=== PATIENT | male | born 1965 | race Caucasian/White ===

== ENCOUNTER 2017-03-17 00:56 | Emergency (ER) | payer OTHER ==
[~2017-03-17] VITALS: Ht 188 cm; Wt 89.1 kg
[2017-03-17 00:58] VITALS: TEMP 36.8; Ht 188 cm; Wt 89.1 kg
[2017-03-17] MEDS ORDERED: HYDROCODONE/ACETAMOPHEN 5/325MG TAB PO STA (01:13)
[2017-03-17] MEDS ORDERED: DEXAMETHASONE SOD INJ 10 MG/ML VIAL IM ONE (01:15)
[2017-03-17] MEDS ORDERED: NORCO 5/325MG HOME PACK PO ONE (01:15)
[2017-03-17] MEDS ORDERED: ZOLP10TA PO (01:17)
[2017-03-17] MEDS ORDERED: NAPR1TAB9 PO (01:17)
[2017-03-17] MEDS ORDERED: "\\\"MUSCLE RELAXER\\\"" PO (01:18)
--- NOTE | 2017-03-17 01:20 | EMERGENCY ROOM VISIT NOTE ---
History Report prepared by Kenneyibsantiago: Ranjit Alexis Under the Supervision of: Dr. Clemente Hood D.O. First contact with patient: 01:03 Chief Complaint: HIP PAIN Stated Complaint: LEFT HIP IN PAIN History of Present Illness The patient is a 51 year old male who presents to the Emergency Room with complaints of persistent left hip pain for the past five days. The pain is rated 8/10 in severity does not radiate down the leg. The pain is worse when he puts weight on the area in certain positions. The patient has been seeing a chiropractor for the left hip for 20 years. He saw his chiropractor five days ago and yesterday, but the pain has not improved. He had Aleve at 2200 and a muscle relaxer at 1900. The patient does not have any problems with his right hip. The patient works in construction. Source of History: patient Onset: five days ago Position: other (left hip) Symptom Intensity: 8/10 Timing: other (persistent) Modifying Factors (Worsening): other (weight) Review of Systems See HPI for pertinent positives and negatives. A total of ten systems were reviewed and were otherwise negative. Past Medical & Surgical Medical Problems: (1) Chronic left hip pain Family History No pertinent family history Social History Smoking Status: Current Every Day Smoker Marital Status: Housing Status: lives with family Current/Historical Medications Scheduled PRN Naproxen (Aleve), 440 MG PO DIRECTED PRN for Pain Zolpidem Tartrate (Ambien), 10 MG PO HS PRN for Sleep ["Muscle Relaxer"], 1 TAB PO DIRECTED PRN for Muscle Spasms Allergies Coded Allergies: POLLEN (Verified Allergy, Intermediate, SNEEZING, RUNNY NOSE, ITCHY EYES, 03/17/17) Physical Exam Vital Signs Date Time Temp Pulse Resp B/P Pulse Ox O2 Delivery O2 Flow Rate FiO2 03/17/17 00:58 36.8 70 18 148/94 96 Room Air Physical Exam GENERAL: Awake, alert, well-appearing, in no distress HENT: Normocephalic, atraumatic. Oropharynx unremarkable. EYES: Normal conjunctiva. Sclera non-icteric. NECK: Supple. No nuchal rigidity. FROM. No JVD. RESPIRATORY: Clear to auscultation. CARDIAC: Regular rate, normal rhythm. Extremities warm and well perfused. Pulses equal. ABDOMEN: Soft, non-distended. No tenderness to palpation. No rebound or guarding. No masses. RECTAL: Deferred. MUSCULOSKELETAL: Tender to palpation over the left sacroiliac area. LOWER EXTREMITIES: Calves are equal size bilaterally and non-tender. No edema. No discoloration. NEURO: Normal sensorium. No sensory or motor deficits noted. SKIN: No rash or jaundice noted. Medical Decision & Procedures ED Course 0105: The patient was evaluated in room B2. A complete history and physical exam was performed. 0113: Hume 5/325 mg PO. 0115: Decadron 10 mg IM, Hume 5/325 mg PO homepack. 0115: I reevaluated the patient. Discussed results and discharge instructions: He verbalized understanding and agreement. The patient is ready for discharge. Medical Decision Differential diagnosis includes lumbosacral strain, herniated disc, sacroiliitis , sciatica. Patient has an examination that suggests sacroiliitis. We'll place patient on Decadron as well as pain medicine. I discussed evaluation with the patient patient's family I do not suspect cauda equina syndrome he is ambulatory has no bowel or bladder dysfunction Impression Primary Impression: Sacroiliitis Scribe Attestation The scribe's documentation has been prepared under my direction and personally reviewed by me in its entirety. I confirm that the note above accurately reflects all work, treatment, procedures, and medical decision making performed by me. Departure Information Dispostion Home / Self-Care Prescriptions Hydrocodone/Acetaminophen 5MG/325MG (Hume 5MG/325MG) Tab 1 TABLET PO Q4H Y for Pain, #10 TAB PRN PAIN Prov: Clemente Hood, DO 03/17/17 Methylprednisolone (MEDROL DOSEPAK) 4 Mg Rickie 0 PO DAILY, #1 PKT Prov: Clemente Hood, DO 03/17/17 Referrals Bala Graves Jr,D.O. (PCP) Forms HOME CARE DOCUMENTATION FORM, IMPORTANT VISIT INFORMATION, WORK / SCHOOL INSTRUCTIONS Patient Instructions ED Sacroiliitis, My [facility]
[2017-03-17] MEDS ORDERED: METH4PAK PO (01:23)
[2017-03-17] MEDS ORDERED: HYDR-5688 PO (01:23)
[2017-03-17 01:34] VITALS: BP 163/102; PULSE 58; O2SAT 95
== END 2017-03-17 01:35 | disposition home or self-care (01) ==
LOC: C.EDB 00:57
DX: M46.1 Sacroiliitis, not elsewhere classified (principal); G89.29 Other chronic pain; F17.200 Nicotine dependence, unspecified, uncomplicated; Z91.09 Other allergy status, other than to drugs and biological substances